=== PATIENT | male | born 1995 | race Caucasian/White ===

== ENCOUNTER 2016-04-23 10:07 | Emergency (ER) | payer BC ==
[2016-04-23 10:26] VITALS: BP 113/60
--- NOTE | 2016-04-23 10:56 | UC ---
Syncope/New Syncope HPI - HPI Summary HPI Summary: FATIGUE , FAINT FEELING X 2 DAYS , + PALPITATIONS , NO CHEST PAIN + ABDOMINAL DISCOMFORT. NO FEVER, NO CHILLS, - History Of Current Complaint Chief Complaint: UCCardiac Stated Complaint: FAINTNESS,SOB Time Seen by Provider: 04/23/16 10:25 Hx Obtained From: Patient Onset/Duration: Gradual Onset, Lasting Days - 2, Still Present Timing: Constant Associated Head Trauma: No Aggravating Factor(s): Exertion Alleviating Factor(s): Nothing Associated Signs And Symptoms: Positive: Lightheadedness, Weakness. Negative: AMS, Chest Pain, Decreased Oral Intake, Diarrhea, Diaphoresis, Dizzy, GI Blood Loss, Head Trauma (Remote), Head Trauma (Recent), Headache, Numbness, Pain, Palpitations, Seizure, Shortness Of Breath, Vomiting - Allergies/Home Medications Allergies/Adverse Reactions: Allergies Allergy/AdvReac Type Severity Reaction Status Date / Time No Known Allergies Allergy Verified 04/23/16 10:26 Home Medications: Home Medications Arginine [l-Arginine] 500 mg PO ONCE 04/23/16 [History Confirmed 04/23/16] Multivitamins/Minerals TAB* [Thera M Plus TAB*] 1 tab PO DAILY 04/23/16 [ History Confirmed 04/23/16] PMH/Surg Hx/FS Hx/Imm Hx Previously Healthy: Yes - Surgical History Surgical History: Yes Surgery Procedure, Year, and Place: adnoids. right shoulder labrum and rotator cuff repair - Family History Known Family History: Negative: Diabetes - Social History Alcohol Use: Weekly Alcohol Amount: 3-4 times a week Substance Use Type: None Smoking Status (MU): Never Smoked Tobacco Review of Systems Constitutional: Fatigue Skin: Negative Eyes: Negative ENT: Negative Respiratory: Negative Cardiovascular: Negative Gastrointestinal: Abdominal Pain Genitourinary: Negative Motor: Negative Neurovascular: Negative Musculoskeletal: Negative All Other Systems Reviewed And Are Negative: Yes Physical Exam Triage Information Reviewed: Yes Appearance: Well-Appearing, No Pain Distress, Well-Nourished Vital Signs: Initial Vital Signs Temp 98.7 F 04/23/16 10:16 Pulse 73 04/23/16 10:16 Resp 14 04/23/16 10:16 BP 113/60 04/23/16 10:16 Pulse Ox 99 04/23/16 10:16 Vital Signs Reviewed: Yes Eye Exam: Normal Eyes: Positive: Conjunctiva Clear ENT Exam: Normal ENT: Positive: Normal ENT inspection, Hearing grossly normal, Pharynx normal Neck exam: Normal Neck: Positive: Supple, Nontender, No Lymphadenopathy Respiratory: Positive: Chest non-tender, Lungs clear, Normal breath sounds Cardiovascular: Positive: RRR, No Murmur, Pulses Normal Abdomen Description: Positive: Nontender, No Organomegaly, Soft. Negative: CVA Tenderness (R), CVA Tenderness (L), Distended, Guarding Bowel Sounds: Positive: Present Musculoskeletal: Positive: Strength Intact, ROM Intact, No Edema Neurological: Positive: Alert, Muscle Tone Normal Skin Exam: Normal Syncope Course/Dx - Differential Dx/Diagnosis Provider Diagnoses: FATIGUE. VIRAL ILLNESS Discharge - Discharge Plan Condition: Stable Disposition: HOME Patient Education Materials: Viral Syndrome (ED) Referrals: Non Staff,Doctor [Primary Care Provider] - 7 Days Additional Instructions: FATIGUE, PALPITATIONS MOST LIKELY DUE TO VIRAL ILLNESS CONT. WITH REST, INCREASE FLUID FOLLOW UP IN 2 DAYS IF NOT IMPROVING MAY CHECK SOME BLOOD WORK AT THAT TIME INCLUDING CBC, CMP AND TSH
== END 2016-04-23 11:16 | disposition home or self-care (01) ==
LOC: UCCORT 10:07
DX: R42 Dizziness and giddiness (principal); R53.83 Other fatigue; S09.8XXA Other specified injuries of head, initial encounter; W18.30XA Fall on same level, unspecified, initial encounter; R55 Syncope and collapse; B34.9 Viral infection, unspecified; R10.9 Unspecified abdominal pain
CPT/HCPCS: 93005; 99201; G0463